=== PATIENT | male | born 1940 | race Caucasian/White ===

== ENCOUNTER 2020-03-05 09:45 | Emergency (ER) | payer OTHER, BC ==
[~2020-03-05] VITALS: Ht 175.3 cm; Wt 113.4 kg
[~2020-03-05 09:45] MED LIST: PROVENTIL0.5 ML/2.5
[2020-03-05] MEDS ORDERED: METFORMIN HCL500 M3 (10:02)
[2020-03-05] MEDS ORDERED: GRALISE600 MG (10:03)
[2020-03-05] MEDS ORDERED: TOPROL XL25 M1 (10:03)
[2020-03-05] MEDS ORDERED: SINGULAIR 10MG10 MG (10:03)
[2020-03-05] MEDS ORDERED: ELIQUIS5 MG (10:03)
[2020-03-05] MEDS ORDERED: LIPITOR40 M1 (10:04)
[2020-03-05] MEDS ORDERED: PROSCAR5 MG (10:04)
[2020-03-05] MEDS ORDERED: CIALIS5 MG (10:04)
[2020-03-05] MEDS ORDERED: XOPENEX0.63 MG/3 IH (13:38)
[2020-03-05] MEDS ORDERED: TUSNEL LIQUID178 ML PO (13:39)
== END 2020-03-05 16:02 | disposition home or self-care (01) ==
LOC: ER 09:45
DX: J45.998 Other asthma (principal)

== ENCOUNTER 2024-07-21 04:14 | Emergency (ER) | payer OTHER ==
[~2024-07-21] VITALS: Ht 182.9 cm; Wt 113.4 kg
[~2024-07-21 04:14] MED LIST changes: +CIALIS5 MG; +ELIQUIS5 MG; +GRALISE600 MG; +LIPITOR40 M1; +METFORMIN HCL500 M3; +PROSCAR5 MG; +SINGULAIR 10MG10 MG; +TOPROL XL25 M1; +TUSNEL LIQUID178 ML PO; +XOPENEX0.63 MG/3 IH
[2024-07-21] MEDS ORDERED: MECLIZINE HCL 25 MG TABLET PO STA (05:10)
[2024-07-21] MEDS ORDERED: MECLIZINE HCL 25 MG TABLET PO ONE (05:14)
[2024-07-21 06:22] LABS: HEMATOCRIT 40.5 % (39.0-48.0); HEMOGLOBIN 13.3 g/dL (13-16.00); MEAN CELL VOLUME 86.7 fL (80.0-100.00); MEAN CORPUSCULAR HEMOGLOBIN 28.6 pg (27.00-32.0); MEAN CORPUSCULAR HGB CONC 32.9 g/dl (32.0-36.0); PLATELET COUNT 159 K/uL (150-450); RED BLOOD COUNT 4.67 M/uL (4.00-6.00); RED CELL DISTRIBUTION WIDTH 16.1 % (11.5-14.5)
[2024-07-21 06:42] LABS: BILIRUBIN TOTAL 0.42 mg/dL (0.3-1.2); CREATININE SERUM 1.35 mg/dL (0.70-1.30); GFR 50.35; GLOBULINA 3.4 G/DL (2.4-3.5); POTASSIUM 4.15 mEq/L (3.5-5.1); TOTAL PROTEIN 6.4 gm/dL (6.4-8.2)
== END 2024-07-21 11:07 | disposition home or self-care (01) ==
LOC: ER 04:14
DX: H81.10 Benign paroxysmal vertigo, unspecified ear (principal); Z88.0 Allergy status to penicillin; Z91.018 Allergy to other foods